=== PATIENT | female | born 1990 | race Caucasian/White ===

== ENCOUNTER → 2016-11-18 | Outpatient (REF) | LOC: WSOH 12:49 | DX: Z02.89 Encounter for other administrative examinations (principal) ==

== ENCOUNTER → 2016-11-21 | Outpatient (REF) | LOC: WSOH 10:32 | DX: Z02.89 Encounter for other administrative examinations (principal) ==

== ENCOUNTER → 2016-11-21 | Outpatient (REF) | LOC: WSOH 10:29 | DX: Z02.89 Encounter for other administrative examinations (principal) ==

== ENCOUNTER → 2016-11-25 | Outpatient (REF) | LOC: WSOH 09:38 | DX: Z02.89 Encounter for other administrative examinations (principal) ==

== ENCOUNTER 2017-10-17 02:34 | Inpatient (IN) | payer BC ==
[2017-10-17] VITALS (34 sets, daily range): BP systolic 104–148; BP diastolic 51–88; PULSE 72–130; TEMP 97.1–98.4
[~2017-10-17] VITALS: Ht 167.6 cm; Wt 84.5 kg
[2017-10-17 06:16] LABS: BASO % 0.3 % (0.0-2.0); EOS # 0.1 (0.0-0.7); EOS % 0.6 % (0-4.0); GRAN # 10.9 (1.4-6.5); GRAN % 74.5 % (42.2-75.2); HEMATOCRIT 35.7 % (37.0-47.0); HEMOGLOBIN 11.9 g/dl (12.5-16.0); LYMPH # 2.5 (1.2-3.4); LYMPH % 17.1 % (20.0-51.0); MEAN CELL VOLUME 85 fl (80.0-100.0); MEAN CORPUSCULAR HEMOGLOBIN 28 pg (27.0-31.0); MEAN CORPUSCULAR HGB CONC 33 g/dl (33.0-37.0); MEAN PLATELET VOLUME 9.9 fl (7.4-10.4); MONO % 6.6 % (1.7-9.3); PLATELET COUNT 250 K/mm3 (130-400); RED BLOOD COUNT 4.19 M/mm3 (4.10-5.30); WHITE BLOOD COUNT 14.6 K/mm3 (4.8-10.8)
[2017-10-18 01:05] VITALS: BP 109/67; PULSE 85; TEMP 98.3
[2017-10-18 05:00] VITALS: BP 107/61; PULSE 89; TEMP 98.1
[2017-10-18 07:17] LABS: BASO % 0.2 % (0.0-2.0); EOS # 0.1 (0.0-0.7); EOS % 0.4 % (0-4.0); GRAN # 12.6 (1.4-6.5); GRAN % 83.3 % (42.2-75.2); LYMPH # 1.6 (1.2-3.4); LYMPH % 10.8 % (20.0-51.0); MEAN CELL VOLUME 87 fl (80.0-100.0); MEAN CORPUSCULAR HGB CONC 33 g/dl (33.0-37.0); MEAN PLATELET VOLUME 9.4 fl (7.4-10.4); MONO # 0.7 (0.1-0.6); MONO % 4.3 % (1.7-9.3); PLATELET COUNT 186 K/mm3 (130-400); RED BLOOD COUNT 3.24 M/mm3 (4.10-5.30); WHITE BLOOD COUNT 15.1 K/mm3 (4.8-10.8)
[2017-10-18 07:21] LABS: HEMATOCRIT 28.1 % (37.0-47.0); HEMOGLOBIN 9.2 g/dl (12.5-16.0); MEAN CORPUSCULAR HEMOGLOBIN 28 pg (27.0-31.0)
[2017-10-18 08:30] VITALS: BP 122/79; PULSE 93; TEMP 98.1
[2017-10-18 16:50] VITALS: BP 116/61; PULSE 107; TEMP 98.6
[2017-10-18 20:30] VITALS: BP 139/64; PULSE 78; TEMP 98.3
[2017-10-19 07:45] VITALS: BP 115/66; PULSE 76; TEMP 98.2
[2017-10-19] MEDS ORDERED: PERCOCET 325 MG1 TA2 PO (12:26)
[2017-10-19] MEDS ORDERED: IBU600 MG PO (12:26)
[2017-10-19] MEDS ORDERED: FERROUS SU325 MG/TAB PO (12:26)
[2017-10-19 16:39] VITALS: BP 112/64; PULSE 100; TEMP 97.7
[2017-10-19 21:00] VITALS: BP 122/56; PULSE 95; TEMP 97.9
[2017-10-20 08:12] VITALS: BP 111/58; PULSE 80; TEMP 97.7
== END 2017-10-20 11:30 | disposition home or self-care (01) | DRG 766 ==
LOC: LDRO 02:34 → OB 04:30 → LDR 04:30 → OB 10-18
PROVIDERS: Obstetrics & Gynecology; Student in an Organized Health Care Education/Training Program
PROC: 10D00Z1 Extraction of Products of Conception, Low, Open Approach (ICD-10-PCS; principal; 2017-10-17)
DX: O62.1 Secondary uterine inertia (principal); O76 Abnormality in fetal heart rate and rhythm complicating labor and delivery; O66.5 Attempted application of vacuum extractor and forceps; O99.02 Anemia complicating childbirth; D64.9 Anemia, unspecified; Z3A.38 38 weeks gestation of pregnancy; Z37.0 Single live birth
CPT/HCPCS: J0330; J0690; J1885; J2270; J2400; J2405; J2550; J2590; J2704; J3010; J7120

== ENCOUNTER 2019-04-07 00:02 | Outpatient (CLI) | payer MEDICAID ==
[~2019-04-07] VITALS: Ht 167.6 cm; Wt 82.3 kg
[~2019-04-07 00:02] MED LIST: FERROUS SU325 MG/TAB PO; IBU600 MG PO; PERCOCET 325 MG1 TA2 PO
[2019-04-07] MEDS ORDERED: PRENATAL MVI (00:37)
[2019-04-07 01:00] VITALS: BP 125/74; PULSE 75; TEMP 98
--- NOTE | 2019-04-07 01:00 | NUR ---
0025- Patient ambulatory to LDR-5 from ED with , Carlos, and sow farm technician. Patient into restroom to change into gown. 0030- Patient back into bed. EFM and TOCO on and tracing intermittently. Patient states contractions started at 1600 this afternoon and have been getting increasingly stronger since 2100. Patient states contractions are every 4-5 minutes, lasting 1 minute. Patient states her most recent contractions have been every 5-7 minutes. Patient states she is able to talk/breathe/walk through her contractions. Patient desires a and has discussed this with . Plan of care discussed with patient. 0045- SVE by ROSIBEL Nettles. Cervix is noted to be very posterior and is difficult to check at this time. Patient tolerated SVE well.
[2019-04-07 01:30] VITALS: BP 119/76; PULSE 70
[2019-04-07 02:00] VITALS: BP 121/72; PULSE 76
--- NOTE | 2019-04-07 02:00 | NUR ---
0150- SVE and unchanged from previous SVE. 0200- on L&D unit and reviews strip. Ok to discharge home. Discharge instructions and early labor signs discussed with patient. Encouraged patient to keep OB today with . Questions encouraged and answered. 0220- Patient ambulatory off unit with .
[2019-04-07 02:05] VITALS: BP 108/64; PULSE 85
== END 2019-04-07 02:20 | disposition home or self-care (01) ==
LOC: LDRO 00:02
DX: O62.9 Abnormality of forces of labor, unspecified (principal); Z3A.39 39 weeks gestation of pregnancy

== ENCOUNTER 2019-04-07 22:19 | Inpatient (IN) | payer MEDICAID ==
[~2019-04-07] VITALS: Ht 167.6 cm; Wt 81.4 kg
[~2019-04-07 22:19] MED LIST changes: +PRENATAL MVI
--- NOTE | 2019-04-07 22:30 | NUR ---
G2L1. 39.3. Wheeled to LDR 4 with spouse. Clean gown on. EFM and TOCO explained and applied. Pt appears very uncomfortable with contractions. Slow deep breathing instructions given to pt. Pt states she has been having contractions for the past couple of days but have been more consistent tonight. Pt states they were every 7 minutes at home but since arriving at hospital they are now every 3 minutes. Denies LOF. Report small amount of vaginal bleeding due to pt's membranes being swept today at her apt. Reports good movement. Pt requesting at this time and pt verbalizes the risks. SVE 7/100/-1 per Charlotte RN. Plan of care explained to pt and who verbalize understanding. Pt requesting epidural at this time. 224: updated on pts status. See physican notification. 2246: Pt states she is feeling the urge to push. SVE C/+1. called and requested for delivery. 2256: at bedside. SVE complete and pt set up for delivery. Pt educated on pushing with contractions. 2259: Audible deceleration noted down to 75bpm. Broken tracing so unable to determine time frame. Oxygen administered via oxymask at 10L. at reviewing FHR strip while pushing. [id number]: Broken FHR tracing. Aubible intermittent decelerations notes. Scalp stem completed by with intermittent returns to FHR baseline. Lidocaine 1% administered vaginally and second degree right mediolateral episiotomy completed by . 2316: Spontaneous vaginal delivery of viable male infant by . to mothers chest where dried and stimulated by nursery RN. Cord clamped X2 and cut by FOB. Care of assumed by Marlys GLEASON. 2320: Spontaneous delivery of intact placenta by . Pitocin started at 333mus/hr per protocol. Episiotomy repaired by . Fundus firm, midline and bleeding minimal. Pericare provided, pads changed and pt repositioned in bed. Plan of care and safety precautions explained to pt who verbalizes understanding. See doctor dictations.
[2019-04-07 22:45] VITALS: BP 129/70; PULSE 71; TEMP 97.6
[2019-04-07 23:30] VITALS: BP 132/73; PULSE 92
[2019-04-07 23:45] VITALS: BP 115/57; PULSE 77
[2019-04-08] VITALS (10 sets, daily range): BP systolic 102–129; BP diastolic 56–76; PULSE 67–90; TEMP 97.4–98.1
[2019-04-08 01:20] LABS: BASO # 0.1 (0.0-0.2); BASO % 0.2 % (0.0-2.0); EOS % 0.1 % (0-4.0); GRAN # 19.9 (1.4-6.5); GRAN % 88.4 % (42.2-75.2); HEMOGLOBIN 12.9 g/dl (12.5-16.0); LYMPH # 1.5 (1.2-3.4); LYMPH % 6.7 % (20.0-51.0); MEAN CELL VOLUME 87 fl (80.0-100.0); MEAN CORPUSCULAR HEMOGLOBIN 31 pg (27.0-31.0); MEAN CORPUSCULAR HGB CONC 35 g/dl (33.0-37.0); MEAN PLATELET VOLUME 9.7 fl (7.4-10.4); MONO # 0.8 (0.1-0.6); MONO % 3.7 % (1.7-9.3); PLATELET COUNT 210 K/mm3 (130-400); RED BLOOD COUNT 4.23 M/mm3 (4.10-5.30); REDCELL DISTRIBUTION WIDTH-CV 12.9 % (11.5-14.5)
[2019-04-08 01:30] LABS: HEMATOCRIT 36.7 % (37.0-47.0)
[2019-04-09 09:00] VITALS: BP 117/83; PULSE 96; TEMP 97.9
--- NOTE | 2019-04-09 09:00 | NUR ---
Rests in bed, alert. Denies any pain or discomfort at this time.
[2019-04-09] MEDS ORDERED: PERCOCET 325 MG1 TA2 PO (09:29)
[2019-04-09] MEDS ORDERED: IBU800 M1 PO (09:29)
--- NOTE | 2019-04-09 10:34 | NUR ---
Visited the patient and congratulated her on behalf of [address]
== END 2019-04-09 11:55 | disposition home or self-care (01) | DRG 807 ==
LOC: LDRO 22:19 → LDR 22:45 → OB 22:45
PROVIDERS: Obstetrics & Gynecology; ADMIT Student in an Organized Health Care Education/Training Program
PROC: 10E0XZZ Delivery of Products of Conception, External Approach (ICD-10-PCS; principal; 2019-04-07)
PROC: 0W8NXZZ Division of Female Perineum, External Approach (ICD-10-PCS; 2019-04-07)
DX: O34.211 Maternal care for low transverse scar from previous cesarean delivery (principal); Z37.0 Single live birth; Z3A.39 39 weeks gestation of pregnancy; O76 Abnormality in fetal heart rate and rhythm complicating labor and delivery; O69.81X0 Labor and delivery complicated by cord around neck, without compression, not applicable or unspecified
CPT/HCPCS: J2590; J7120

== ENCOUNTER → 2020-07-27 | Outpatient (CLI) | payer BC, MEDICAID ==
[~2020-07-27] MED LIST changes: +IBU800 M1 PO
== END ==
LOC: ZCOL.LAB 16:57
DX: Z20.828 Contact with and (suspected) exposure to other viral communicable diseases (principal)

== ENCOUNTER → 2020-08-03 | Outpatient (CLI) | payer BC | LOC: ZCOL.LAB 16:04 | DX: Z20.828 Contact with and (suspected) exposure to other viral communicable diseases (principal) ==

== ENCOUNTER 2023-07-29 01:20 | Outpatient (CLI) | payer SELFPAY ==
[~2023-07-29] VITALS: Ht 167.6 cm; Wt 81.4 kg
--- NOTE | 2023-07-29 01:25 | NUR ---
PT TO UNIT AMBULATORY WITH SPOUSE WITH COMPLAINTS OF CTX THAT STARTED AT APPROXIMATELY 2100 THIS EVENING. PT IS G3L2 WITH HX OF CSX1 AND X1. INTENDS TO ATTEMPT FOR THIS DELIVERY. PT ORIENTED TO ROOM, CHANGED INTO GOWN. EFMX2 APPLIED, VS OBTAINED, SVE UNCHANGED FROM TODAY'S OFFICE VISIT. PT DENIES LOF OR VB.
[2023-07-29 02:00] VITALS: BP 125/80; PULSE 89; TEMP 98.1
--- NOTE | 2023-07-29 02:39 | NUR ---
NO CERVICAL CHANGE. SEE PHYSICIAN NOTIFICATION CONCERNING DISCHARGE. MONITORING DC'D. PT CHANGING INTO OWN CLOTHES WHILE DISCHARGE PAPERWORK PREPARED.
--- NOTE | 2023-07-29 02:55 | NUR ---
DISCHARGE INSTRUCTIONS REVIEWED WITH PT AND SPOUSE. INSTRUCTED THAT SHE MAY TAKE TYLENOL AND BENADRYL PER BOTTLE INSTRUCTIONS FOR PAIN AND SLEEP. SHOULD RETURN TO UNIT IF HER CONTRACTIONS BECOME MORE CONSISTENT OR PAINFUL, IF WATER BREAKS, OR SHE HAS HEAVY VAGINAL BLEEDING. QUESTIONS ENCOURAGED AND ANSWERED, UNDERSTANDING VERBALIZED. PT OFF THE UNIT AMBULATORY WITH SPOUSE.
== END 2023-07-29 02:55 | disposition home or self-care (01) ==
LOC: LDRO 01:20 → LDR 01:52 → LDRO 02:55
DX: O26.893 Other specified pregnancy related conditions, third trimester (principal); E75.5 Other lipid storage disorders; Z3A.38 38 weeks gestation of pregnancy
CPT/HCPCS: OP

== ENCOUNTER 2023-07-29 09:41 | Inpatient (IN) | payer OTHER ==
[~2023-07-29] VITALS: Ht 167.6 cm; Wt 81.4 kg
[2023-07-29] VITALS (38 sets, daily range): BP systolic 11–144; BP diastolic 55–75; PULSE 70–111; TEMP 97.8–98.3
--- NOTE | 2023-07-29 09:50 | NUR ---
Pt arrived on unit ambulatory and with concerns for worsening contractions. Pt reports they have been consistent since 2100 last night. Pt denies any leaking of fluid or vaginal bleeding and reports normal movement. EFM and toco monitors started. Vital signs WNL. SVE by this RN /. Plan of care for labor asssessment reviewed with pt and at the bedside.
--- NOTE | 2023-07-29 10:20 | NUR ---
Pt off EFM to ambulate.
--- NOTE | 2023-07-29 11:20 | NUR ---
Dr. Kebede on the unit. FHR tracing and ctx pattern reviewed. Ok to monitor pt another hour and reassess with SVE.
--- NOTE | 2023-07-29 11:26 | NUR ---
Pt off EFM to ambulate and use birthing ball.
--- NOTE | 2023-07-29 12:25 | NUR ---
Dr. Kebede at the bedside. FHR tracing reviewed. SVE done 4-. Orders for labor admission received.
[2023-07-29 13:13] LABS: BASO % 0.3 % (0.0-2.0); EOS % 0.1 % (0.0-4.0); GRAN # 12.8 K/mm3 (1.4-6.5); GRAN % 83.1 % (42.2-75.2); LYMPH # 1.7 K/mm3 (1.2-3.4); LYMPH % 11.2 % (20.0-51.0); MEAN CELL VOLUME 84 fl (80.0-100.0); MEAN CORPUSCULAR HEMOGLOBIN 28 pg (27-31); MEAN CORPUSCULAR HGB CONC 33 g/dl (33.0-37.0); MEAN PLATELET VOLUME 9.3 fl (7.4-10.4); MONO # 0.7 K/mm3 (0.1-0.6); MONO % 4.5 % (1.7-9.3); PLATELET COUNT 254 K/mm3 (130-400); RED BLOOD COUNT 4.28 M/mm3 (4.10-5.30); REDCELL DISTRIBUTION WIDTH-CV 12.7 % (11.5-14.5)
[2023-07-29 13:16] LABS: HEMATOCRIT 36.1 % (37.0-47.0)
--- NOTE | 2023-07-29 18:27 | NUR ---
1610 DR HICKEY SVE /0. 1611 AROM. LIGHT MECONIUM FLUID NOTED. PT REPOSITIONED INTO RIGHT LATERAL WITH LEFT LEG IN STIRRUP. [address] HICKEY /+1. MONT[place]O REMOVED BY THIS RN. [address] HICKEY AT BEDSIDE. PT BEGINS PUSHING WITH CONTRACTIONS. 1658 DR HICKEY ORDERS FOR PITOCIN TO BE STARTED AT 2MU. 1730 DR HICKEY REQUESTS THAT PT STOP PUSHING AND ATTEMPT LABORING DOWN WITH POSITION CHANGES. 1732 PT REPOSITIONED INTO [place] 1742 PT REPOSITIONED INTO WEDGED LEFT WITH RIGHT LEG IN STIRRUP. 1752 PT WEDGED RIGHT WITH LEFT LEG IN STIRRUP. 1805 PT REPOSITIONED INTO LAMONT. 1815 THIS RN GIVES REPORT TO FREDIS MONTES RN.
--- NOTE | 2023-07-29 19:00 | NUR ---
Pt continues pushing, she does tell this nurse she would like to try and change up positions if possible. This nurse asks pt what she feels comfortable repositioning to and pt asks if it is possible for her to be able to squat or be upright in some way. RN informs pt that I can get her the squat bar and together her, I and her spouse can work together to try and help her push in a squatting position. Pt agreeable with this plan of care.
--- NOTE | 2023-07-29 19:15 | NUR ---
Pt continues to push through contractions in semi-fowlers position, supported by spouse and RN. Pt stamina doing well at this moment. Pt wanting to continue to push for a few more contractions in this position and then attempt to use the squat bar. RN and spouse supportive of pt. RN unable to determine if accels or decels are present on heart tones strip due to maternal position and due to pt pushing. RN remains at bedside monitoring pt and fetus.
--- NOTE | 2023-07-29 19:30 | NUR ---
Pt repositioned to high fowlers, foot of bed lowered and squat bar placed in front of her for support. Spouse and RN support pt during pushing and pt tells RN she feels good in this position and feels better pushing this way. Pt rests between contractions and RN remains at bedside. RN unable to determine decels and accels due to maternal position and pt pushing during this tracing.
--- NOTE | 2023-07-29 19:45 | NUR ---
Pt continues pushing, using the squat bar with spouse and RN support. Pt reports feeling increasingly more tired between contractions and feeling more discomfort when she has the contractions. RN is unable to determine decels due to maternal position and pt pushing but remains at bedside monitoring strip.
--- NOTE | 2023-07-29 20:00 | NUR ---
Pt continues to push with contractions, will rest with every couple contractions to preserve her energy. Pt does change positions from squatting back to semi-fowlers to do tug of war with RN to try and aid in descent and change in pushing techniques. RN continues to be unable to determine accels or decels during this tracing due to maternal position and pt pushing. RN remains at bedside monitoring maternal and status.
--- NOTE | 2023-07-29 20:15 | NUR ---
Pt resting at this moment, she is feeling very tired and is wanting to rest for a few contractions. RN remains at bedside, heart tones tracing interrupted due to maternal position. Audible decel heard through monitor by RN and pt repositioned to her right side. RN supports pt through contractions and talks pt through her contractions and also massages her left hip. Pt coping fair at this time. Pt does tell RN she would like to talk to Dr Kebede about her recommendations at this time, because she is tired and feeling as though she is not making any progress and would like to discuss with Dr Kebede about what the pt can do or what is recommended at this point. RN tells pt I will inform Dr Kebede that she would like to talk to her.
--- NOTE | 2023-07-29 20:30 | NUR ---
Dr Kebede at the bedside assessing progress and pt status. Pt does push with a contraction with Dr Kebede assessing status. Dr Kebede discusses with pt that fetus has descended a small amount but that she believes it is more caput that she is feeling than the fetus' skull bones. Dr Kebede further discusses with pt that if she feels she can continue to push, she can do that and Dr Kebede could attempt to place and use a vacuum to attempt to deliver the fetus. Dr Kebede did clarify with pt that her first delivery was a failed vacuum and pt confirmed. Dr Kebede discussed with the pt that if attempting delivery with a vacuum is something the pt wanted, Dr Kebede would do that, or the pt could elect to go ahead and have a repeat section. Pt tells Dr Kebede that she is tired, feels like she is not making progress and does not feel like she has the energy to push for another hour. Pt tells Dr Kebede she would like to just go ahead and have a repeat section at this time. Dr Kebede tells pt the RN and the staff will get everything ready.
--- NOTE | 2023-07-29 21:25 | NUR ---
Pt to PACU via bed, assisted by anesthesia and RN. Pt is alert, oriented and doing well. Denies discomfort at this time, but does report some uterine cramping at times. Pt placed on monitors and vitals obtained.
[2023-07-30] VITALS: BP 115/72; PULSE 91; TEMP 98.2
[2023-07-30 03:45] VITALS: BP 96/52; PULSE 70; TEMP 97.9
--- NOTE | 2023-07-30 09:15 | NUR ---
Initial visit; Parents thanked Software Release Engineer for offering congratulations and God's congratulations and blessings for the of their son. Software Release Engineer thanked family for choosint [place].
[2023-07-30 09:30] VITALS: BP 112/63; PULSE 79; TEMP 97.5
[2023-07-30 17:18] VITALS: BP 112/65; PULSE 84; TEMP 97.6
[2023-07-30 20:40] VITALS: BP 108/69; PULSE 96; TEMP 98.9
[2023-07-31 07:30] VITALS: BP 103/64; PULSE 74; TEMP 97.5
[2023-07-31] MEDS ORDERED: IBU800 M1 PO (08:52)
[2023-07-31] MEDS ORDERED: PERCOCET 325 MG1 TA2 PO (08:52)
== END 2023-07-31 11:45 | disposition home or self-care (01) | DRG 788 ==
LOC: LDRO 09:41 → LDR 12:34 → OB 07-30 06:00
PROVIDERS: ADMIT Student in an Organized Health Care Education/Training Program
PROC: 10D00Z1 Extraction of Products of Conception, Low, Open Approach (ICD-10-PCS; principal; 2023-07-29)
DX: O34.211 Maternal care for low transverse scar from previous cesarean delivery (principal); Z37.0 Single live birth; O77.0 Labor and delivery complicated by meconium in amniotic fluid; O62.1 Secondary uterine inertia; O75.81 Maternal exhaustion complicating labor and delivery; O66.41 Failed attempted vaginal birth after previous cesarean delivery; O69.2XX0 Labor and delivery complicated by other cord entanglement, with compression, not applicable or unspecified; Z3A.38 38 weeks gestation of pregnancy
CPT/HCPCS: J0171; J0456; J0665; J0690; J1885; J2175; J2371; J2405; J2590; J2795; J7050; J7120